=== PATIENT | male | born 1960 | race Caucasian/White ===

== ENCOUNTER → 2021-04-20 09:23 | Outpatient (BNVA) | payer MEDICARE, SELFPAY | PROVIDERS: Family Provider Specialist; PCP Nurse Practitioner Family; Referring Provider Nurse Practitioner Family; Visit Provider Anesthesiology Pain Medicine | DX: M48.062 Spinal stenosis, lumbar region with neurogenic claudication (principal); M79.604 Pain in right leg; M79.605 Pain in left leg; M46.96 Unspecified inflammatory spondylopathy, lumbar region; F17.210 Nicotine dependence, cigarettes, uncomplicated | CPT/HCPCS: 99214 ==

== ENCOUNTER → 2021-05-05 13:54 | Outpatient (BNVA) | payer MEDICARE, SELFPAY | PROVIDERS: Family Provider Specialist; PCP Nurse Practitioner Family; Visit Provider Anesthesiology Pain Medicine | DX: M54.16 Radiculopathy, lumbar region (principal); F17.210 Nicotine dependence, cigarettes, uncomplicated | CPT/HCPCS: 64483; 64484; J1100; J3490 ==

== ENCOUNTER → 2021-05-20 09:21 | Outpatient (BNVA) | payer MEDICARE, SELFPAY | PROVIDERS: Family Provider Specialist; PCP Nurse Practitioner Family; Visit Provider Anesthesiology Pain Medicine | DX: M47.816 Spondylosis without myelopathy or radiculopathy, lumbar region (principal); M51.16 Intervertebral disc disorders with radiculopathy, lumbar region; M79.604 Pain in right leg; M79.605 Pain in left leg; F17.210 Nicotine dependence, cigarettes, uncomplicated | CPT/HCPCS: 99214 ==

== ENCOUNTER → 2021-06-23 10:53 | Outpatient (BNVA) | payer MEDICARE, SELFPAY | PROVIDERS: Family Provider Specialist; PCP Nurse Practitioner Family; Referring Provider Nurse Practitioner Family; Visit Provider Orthopaedic Surgery | DX: M17.12 Unilateral primary osteoarthritis, left knee (principal); F17.210 Nicotine dependence, cigarettes, uncomplicated | CPT/HCPCS: 73560; 73565; 99204 ==

== ENCOUNTER 2022-08-03 12:14 | Outpatient (CLI) | payer MEDICARE, SELFPAY ==
--- NOTE | 2022-08-03 12:25 | XRR_ITS ---
PROCEDURE INFORMATION: Exam: XR Chest Exam date and time: 08/03/2022 12:36 PM Age: 61 years old Clinical indication: Condition or disease; Lung condition and disease; Copd; Complications not specified; Additional info: J44.9 - chronic obstructive pulmonary disease, unspecified TECHNIQUE: Imaging protocol: Radiologic exam of the chest. Views: 2 views. COMPARISON: CR XR chest 1V [id number] 03/16/2018 12:07 PM FINDINGS: Lungs: Hyperexpanded lungs consistent with COPD Pleural spaces: Unremarkable. No pleural effusion. No pneumothorax. Heart/Mediastinum: Unremarkable. No cardiomegaly. Bones/joints: Unremarkable. XR/XR chest 2V* [id number] IMPRESSION: 1. COPD 2. Otherwise No acute findings.
== END 2022-08-03 12:15 | disposition home or self-care (01) ==
PROVIDERS: PCP Registered Nurse; Visit Provider Registered Nurse
DX: J44.9 Chronic obstructive pulmonary disease, unspecified (principal); E78.5 Hyperlipidemia, unspecified; M25.50 Pain in unspecified joint
CPT/HCPCS: 71046; 80053; 80061; 85025; 85651; 86141

== ENCOUNTER 2022-08-11 07:59 | Outpatient (CLI) | payer MEDICARE, SELFPAY ==
[2022-08-11 08:18] VITALS: PULSE 58; RESP 18; O2SAT 98
[2022-08-11 08:22] VITALS: PULSE 59
== END 2022-08-11 08:00 | disposition home or self-care (01) ==
LOC: RT 08:01
PROVIDERS: PCP Registered Nurse; Visit Provider Registered Nurse
DX: J44.9 Chronic obstructive pulmonary disease, unspecified (principal)
CPT/HCPCS: 94060; 94726; 94729; J7613

== ENCOUNTER 2022-09-01 06:00 | Outpatient (RCR) | payer MEDICARE, SELFPAY | END 2022-09-26 23:59 | disposition home or self-care (01) | LOC: WPT 06:00 | PROVIDERS: Visit Provider Registered Nurse | DX: M25.562 Pain in left knee (principal) | CPT/HCPCS: 97110; 97162 ==

== ENCOUNTER → 2023-01-27 08:26 | Outpatient (BNVA) | payer MEDICARE, SELFPAY | PROVIDERS: PCP Registered Nurse; Referring Provider Registered Nurse; Visit Provider Student in an Organized Health Care Education/Training Program | DX: M17.12 Unilateral primary osteoarthritis, left knee (principal) | CPT/HCPCS: 20610; 73560; 73565; 99204; J3301 ==

== ENCOUNTER → 2023-06-22 13:20 | Outpatient (BNVA) | payer MEDICARE, SELFPAY | PROVIDERS: PCP Registered Nurse; Visit Provider Physician Assistant | DX: M17.12 Unilateral primary osteoarthritis, left knee (principal) | CPT/HCPCS: 99213 ==

== ENCOUNTER → 2023-07-18 13:57 | Outpatient (BNVA) | payer MEDICARE, SELFPAY | PROVIDERS: PCP Registered Nurse; Visit Provider Physician Assistant | DX: M17.12 Unilateral primary osteoarthritis, left knee (principal) | CPT/HCPCS: 20610; 99213; J7318 ==

== ENCOUNTER → 2023-09-06 10:52 | Outpatient (BNVA) | payer MEDICARE, SELFPAY | PROVIDERS: PCP Registered Nurse; Visit Provider Registered Nurse | DX: E78.5 Hyperlipidemia, unspecified (principal); J44.9 Chronic obstructive pulmonary disease, unspecified; Z79.1 Long term (current) use of non-steroidal anti-inflammatories (NSAID); E55.9 Vitamin D deficiency, unspecified | CPT/HCPCS: 80053; 80061; 82306; 85025 ==

== ENCOUNTER → 2024-02-26 09:53 | Outpatient (BNVA) | payer MEDICARE, SELFPAY | PROVIDERS: PCP Registered Nurse; Visit Provider Registered Nurse | DX: I10 Essential (primary) hypertension; J43.9 Emphysema, unspecified; E78.5 Hyperlipidemia, unspecified; E55.9 Vitamin D deficiency, unspecified | CPT/HCPCS: 80053; 80061; 82306; 85025 ==

== ENCOUNTER 2024-02-27 09:29 | Outpatient (CLI) | payer MEDICARE, SELFPAY ==
[2024-02-27] MEDS: iohexol 350 mg/mL 500 mL Btl (per mL) IV (09:47)
--- NOTE | 2024-02-27 10:30 | CTR_ITS ---
PROCEDURE INFORMATION: Exam: CT Chest With Contrast; Diagnostic Exam date and time: 02/27/2024 9:40 AM Age: 63 years old Clinical indication: Abnormal findings; Abnormal radiologic exam of lung or chest; Patient HX: Follow up chest xray, shortness of breath, cough x 1 month, copd; Additional info: R91.8 - other nonspecific abnormal finding of lung field TECHNIQUE: Imaging protocol: Diagnostic computed tomography of the chest with contrast. Sagittal and coronal reformatted images were also reviewed. Radiation optimization: All CT scans at this facility use at least one of these dose optimization techniques: automated exposure control; mA and/or kV adjustment per patient size (includes targeted exams where dose is matched to clinical indication); or iterative reconstruction. Contrast material: OMNI 350; Contrast volume: 100 ml; Contrast route: INTRAVENOUS (IV); COMPARISON: CR XR chest 2V* [id number] 08/03/2022 12:36 PM RADIATION DOSE METRICS: Total DLP (mGy-cm): 295.09 FINDINGS: Trachea: Tracheobronchial structures are patent. Lungs: Mild paraseptal and centrilobular emphysematous changes in the upper lobes. Scattered areas of linear scarring in the right and left upper lobes. Pleural-based cavitary lesion with thickened patel and spiculated margins in the right upper lobe measuring 6.0 x 3.8 x 4.3 cm (series 7, image 51 and series 4, image 17). Pleural spaces: Small right pleural effusion, possible malignant effusion cannot be ruled out. No pneumothorax. Heart: No cardiomegaly. No pericardial effusion. Coronary arteries: No coronary artery calcification. Esophagus: The esophagus is unremarkable. Mediastinal space: No mediastinal hematoma. No pneumomediastinum. Lymph nodes: Large conglomerate lymph node mass in the right paratracheal region/right hilum measuring 10.3 x 4.4 x 4.2 cm (series 7, image 40 and series 6, image 28). The mass surrounds but does not narrow the right upper and middle lobar bronchi and also surrounds and mildly narrows the right upper lobe pulmonary artery. The mass also invades the superior vena cava, the SVC is almost totally occluded by a combination of tumor thrombus and bland thrombus (series 7, image 41 and series 3, images 20-28). Additional enlarged mediastinal and subcarinal lymph nodes are also visualized, the largest in the subcarinal region measures 2.4 x 3.9 cm (series 3, image 31). Vasculature: Mild atherosclerotic changes in the visualized arteries. No evidence for aortic aneurysm or aortic dissection. Liver: Diffuse, mildly decreased attenuation in the visualized liver. Findings are consistent with mild fatty infiltration. Gallbladder and biliary ducts: No dilatation of the visualized bile ducts. Pancreas: The visualized pancreas is unremarkable. No pancreatic ductal dilatation. Spleen: The spleen is unremarkable. Small splenule in the left upper quadrant. Adrenal glands: The right and left adrenal glands are unremarkable. Kidneys: The visualized right and left kidneys are unremarkable. Bones/joints: Degenerative changes in the spine and shoulders. No lytic or sclerotic bony lesions. Soft tissues: No acute abnormality in the extrathoracic soft tissues. CT/CT chest w con* [id number] IMPRESSION: 1. Pleural-based cavitary lesion with thickened patel and spiculated margins in the right upper lobe measuring 6.0 x 3.8 x 4.3 cm, findings are suspicious for a cavitary neoplasm such as squamous cell carcinoma. 2. Mediastinal and right hilar lymphadenopathy suspicious for metastatic disease. These findings include a large conglomerate lymph node mass in the right paratracheal region/right hilum measuring 10.3 x 4.4 x 4.2 cm. The mass surrounds but does not narrow the right upper and middle lobar bronchi and also surrounds and mildly narrows the right upper lobe pulmonary artery. The lymph node mass also invades the superior vena cava, the SVC is almost totally occluded by a combination of tumor thrombus and bland thrombus. 3. Small right pleural effusion, possible malignant effusion cannot be ruled out. 4. Mild fatty infiltration of the visualized liver. 5. Incidental/nonacute findings are listed in the report. COMMENTS: The presence of pulmonary emphysema on CT is an independent risk factor for lung cancer. In the absence of a history or active diagnosis of lung cancer, it is recommended that this patient with emphysema be evaluated for enrollment in a low dose CT lung cancer screening program.
== END 2024-02-27 09:30 | disposition home or self-care (01) ==
PROVIDERS: PCP Registered Nurse; Visit Provider Registered Nurse
DX: R91.8 Other nonspecific abnormal finding of lung field (principal); R59.9 Enlarged lymph nodes, unspecified; R93.89 Abnormal findings on diagnostic imaging of other specified body structures; R59.1 Generalized enlarged lymph nodes; J90 Pleural effusion, not elsewhere classified; K76.0 Fatty (change of) liver, not elsewhere classified; J43.8 Other emphysema
CPT/HCPCS: 71260

== ENCOUNTER 2024-02-27 13:18 | Inpatient (IN) | payer MEDICARE, SELFPAY ==
[2024-02-27] VITALS (12 sets, daily range): BP systolic 103–179; BP diastolic 76–101; PULSE 66–105; RESP 14–25; TEMP 36.4–37; O2SAT 88–94; BMI 21.8
--- NOTE | 2024-02-27 14:30 | ED_ITS ---
HPI - Recheck/Abnormal Lab/Rx 2 General: Chief Complaint: Recheck/Abnormal Lab/Rx Stated Complaint: Cancer (doc Reff) Time Seen by Provider: 02/27/24 14:23 History of Present Illness: 63-year-old male presented to the emerge ncy room with direction of nurse practitioner he usually sees he had an abnormal chest CT today there is concerning findings suggestive of a lung CA. He has not had any fever sweats or chills he is more short of breath in the last several weeks than he has been in the past. He is has his usual baseline cough no hemoptysis. No fever sweats or chills. No muscle pain muscle spasms or twitching Related Data Home Medications Medication Instructions Recorded Confirmed ibuprofen 200 mg tablet 200 mg PO Q6H PRN Pain 04/20/21 02/27/24 fluticasone fur. 100 mcg-umeclid 1 ea inhalation DAILY 02/27/24 02/27/24 62.5 mcg-vilant 25 mcg inhalat.powder (Trelegy Ellipta) meloxicam 15 mg tablet 15 mg PO DAILY 02/27/24 02/27/24 omeprazole 40 mg capsule,delayed 40 mg PO DAILY 02/27/24 02/27/24 release Previous Rx's Medication Instructions Recorded azithromycin 250 mg tablet See Rx Instructions PO .COMPLEX #6 02/26/24 tabs cholecalciferol (vitamin D3) 1,250 1,250 mcg PO .once a week 90 days 02/26/24 mcg (50,000 unit) capsule #12 caps Allergies Allergy/AdvReac Type Severity Reaction Status Date / Time ciprofloxacin Allergy ADR-Seizure Verified 02/27/24 13:35 sulfamethizole Allergy ADR-Seizure Verified 02/27/24 13:35 Review of Systems 2 Const: Reports: change in appetite and change in weight; Denies: fever(s) or chills Card: Denies: chest pain Resp: Reports: dyspnea and productive cough (Chronic unchanged at baseline) GI: Denies: abdominal pain : Denies: dysuria, urinary frequency or urinary urgency Musc: Denies: neck pain or back pain Skin/Breast: Denies: rash PFSH ED 2 PFSH: Medical History GERD (gastroesophageal reflux disease) COPD (chronic obstructive pulmonary disease) Surgical History Hx of knee surgery Arthroscopy x2. Once in [place] and other in [place] Family History Father Cancer Social History Smoking and tobacco/nicotine status: former use of tobacco/nicotine (Quit 3 weeks ago) Alcohol intake: never Substance/Drug Use: never Adopted: No Caregiver/support person: No Lives independently: No Household members: spouse Marital status: service: No Current occupational status: retired Sexually active: Yes Do you think of yourself as: Straight/Heterosexual Current gender identity: Male Physical Exam 2 Const: GENERAL APPEARANCE: cooperative ORIENTATION/CONSCIOUSNESS: Yes awake, Yes oriented to person, Yes oriented to place and Yes oriented to time HENMT: COMMON NORMALS: normocephalic, atraumatic and hearing grossly normal bilaterally HEAD & SCALP: normocephalic and atraumatic Resp: COMMON NORMALS: normal respiratory effort, No retractions, No use of accessory muscles and clear to auscultation bilaterally AUSCULTATION: clear to auscultation bilaterally Cardio: COMMON NORMALS: regular rate, regular rhythm and No murmurs present (Cardio) RATE: regular rate RHYTHM: regular rhythm GI: COMMON NORMALS: Soft to palpation and No hepatosplenomegaly present A USCULTATION: Yes normoactive bowel sounds PALPATION: Yes Soft to palpation, No Tenderness to palpation present (GI), No Guarding due to palpation present (GI) and Yes No hepatosplenomegaly present Extremity: COMMON NORMALS: normal to inspection, capillary refill normal, no clubbing, cyanosis or edema, no calf tenderness and no pedal edema Neuro: SENSORIUM/ORIENTATION: Yes oriented to person, Yes oriented to place and Yes oriented to time Skin: COMMON NORMALS: no rashes or lesions noted GENERAL SKIN EXAM: no rashes or lesions noted Course 2 Vital Signs: Vital signs: Vital Signs Temperature 98.2 F 02/29/24 17:44 Pulse Rate 87 02/29/24 17:44 Respiratory Rate 16 02/29/24 17:44 Blood Pressure 143/82 02/29/24 17:44 Pulse Oximetry 16 L 01/02/25 17:44 Oxygen Delivery Me thod Room Air 02/29/24 15:47 Fraction of Inspir ed Oxygen 30 02/27/24 18:05 MDM - Recheck/Abnormal Lab/Rx Medical Decision Making Severe hypercalcemia. Calcitonin and zoledronic acid initiated. Discussed with hospitalist. There is a questionable occlusion of the superior vein. I discussed with radiology there is some reconstitution past that Dr. Rosales felt that it was part of the mass effect and that it would not necessarily need to be intervened on at this time it is reconstituting beyond the area of concern. Medical Records I reviewed the patient's medical records. Lab Data 02/29/24 05:08 02/29/24 05:08 Radiology Impressions Abdomen/Pelvis CT 02/27/24 16:38 IMPRESSION: 1. Multiple peritoneal nodules, consistent with metastatic disease. 2. No primary malignancy identified in the abdomen or pelvis. 3. Right pleural effusion. Venous Duplex 02/28/24 08:18 IMPRESSION: No evidence of deep vein thrombosis. Laboratory Results WBC 14.33 10^3/uL (3.29-11.43) H 02/27/24 14:55 RBC 3.79 10^6/uL (3.85-5.65) L 02/27/24 14:55 Hgb 9.80 g/dL (11.27-16.99) L 02/27/24 14:55 Hct 30.8 % (37-53) L 02/27/24 14:55 MCV 81.3 fl (82-101) L 02/27/24 14:55 MCH 25.9 pg (27-33) L 02/27/24 14:55 MCHC 31.8 g/dL (30-55) 02/27/24 14:55 RDW 14.6 % (12.1-15.1) 02/27/24 14:55 Plt Count 286 10^3/cmm (157-399) 02/27/24 14:55 MPV 9.0 fL (7.4-10.4) 02/27/24 14:55 Neut % (Auto) 75.1 % 02/27/24 14:55 Lymph % (Auto) 11.5 % 02/27/24 14:55 [place] % (Auto) 7.6 % 02/27/24 14:55 Eos % (Auto) 0.4 % 02/27/24 14:55 Baso % (Auto) 0.7 % 02/27/24 14:55 Neut # (Auto) 10.75 10^3/uL (1.8-7.7) H 02/27/24 14:55 Lymph # (Auto) 1.7 10^3/uL (0.8-4.8) 02/27/24 14:55 [place] # (Auto) 1.1 10^3/uL (0.2-0.9) H 02/27/24 14:55 Eos # (Auto) 0.1 10^3/uL (0.0-0.8) 02/27/24 14:55 Baso # (Auto) 0.1 10^3/uL (0.0-0.1) 02/27/24 14:55 Nucleated RBC % (auto) 0 % 02/27/24 14:55 Nucleated RBCs # 0.0 /100WBC 02/27/24 14:55 Peripher Smr Path Cons Sent for review 02/27/24 14:55 Sodium 133 mmol/L (136-145) L 02/27/24 14:55 Potassium 4.0 mmol/L (3.5-5.1) 02/27/24 14:55 Chloride 96 mmol/L (98-107) L 02/27/24 14:55 Carbon Dioxide 24 mmol/L (22-29) 02/27/24 14:55 Anion Gap 17.0 (5-19) 02/27/24 14:55 BUN 20 mg/dL (8-23) 02/27/24 14:55 Creatinine 1.1 mg/dL (0.7-1.2) 02/27/24 14:55 GFR Calculation 68.1 mL/min (90-130) L 02/27/24 14:55 Glucose 103 mg/dL (65-115) 02/27/24 14:55 Estimat Average Glucose 128 02/27/24 14:55 Hemoglobin A1c 6.1 % (4.0-6.0) H 02/27/24 14:55 Calculated Osmolality 279 mOsm/kg (285-295) L 02/27/24 14:55 Lactic Acid 2.4 mmol/L (0.5-2.2) H 02/27/24 14:55 Uric Acid 6.8 mg/dL (3.4-7.0) 02/27/24 14:55 Calcium 14.3 mg/dL (8.5-10.5) H* 02/27/24 14:55 Ionized Calcium Mitzy 1.9 mmol/L (1.1-1.4) H* 02/27/24 14:55 Magnesium 1.3 mg/dL (1.7-2.3) L 02/27/24 14:55 Total Bilirubin 0.3 mg/dL (0.15-1.2) 02/27/24 14:55 AST 30 U/L (0-40) 02/27/24 14:55 ALT 28 U/L (0-41) 02/27/24 14:55 Alkaline Phosphatase 176 U/L (40-130) H 02/27/24 14:55 Lactate Dehydrogenase 815 U/L (135-225) H 02/27/24 14:55 Total Protein 6.8 g/dL (6.6-8.7) 02/27/24 14:55 Albumin 3.5 g/dL (3.5-5.2) 02/27/24 14:55 Globulin 3.3 g/dL (1.3-4.6) 02/27/24 14:55 Triglycerides 358 mg/dL (0-150) H 02/27/24 14:55 Cholesterol 200 mg/dL (0-200) 02/27/24 14:55 LDL Cholesterol, Calc 100 mg/dL (50-129) 02/27/24 14:55 HDL Cholesterol 28 mg/dL (60-100) L 02/27/24 14:55 LDL/HDL Ratio 3.57 RATIO (0.00-3.22) H 02/27/24 14:55 Cholesterol/HDL Ratio 7.14 mg/dL (1.0-5.00) H 02/27/24 14:55 25-OH Vitamin D Total 70 pg/mL (18-72) 02/27/24 14:55 1,25 Dihydroxy Vit D2 <8 pg/mL 02/27/24 14:55 1,25 Dihydroxy Vit D3 70 pg/mL 02/27/24 14:55 TSH 1.37 uIU/mL (0.27-4.20) 02/27/24 14:55 PTH Intact 3.4 pg/mL (15-65) L 02/27/24 14:55 Calcium (PTH Intact) 14.7 mg/dL (8.5-10.5) H* 02/27/24 14:55 All radiology interpretation(s) finalized by discharge Discharge Plan Discharge Patient Disposition: Admitted As Inpatient Admit Provider: Tigre Melissa Clinical Impression: Hypercalcemia of malignancy, Superior vena caval occlusion, Mass of right lung, Cigarette smoker motivated to quit Condition: Stable Coding Level of Care Code ED Prototype Technician for Sunil Gauthier
--- NOTE | 2024-02-27 14:44 | ECG_ITS ---
[facility] Test Date: 2024-02-27 Pat Name: Erica Jo Department: Room: Gender: Male Geochemist: : 1960 Requested By: Ravi Bailey Order Number: [id number] Reji MD: Yue Moore M.D. Measurements Intervals [place] Rate: 68 P: 53 [place]: 157 QRS: 30 QRSD: 108 T: 37 QT: 369 QTc: 395 Interpretive Statements SINUS RHYTHM No previous ECG available for comparison Electronically Signed On 02-27-2024 17:46:39 CLIMATE CHANGE RISK ASSESSOR by Yue Moore M.D. [id number]
[2024-02-27 15:03] LABS: Ionized Calcium 1.9 mmol/L (1.1-1.4)
[2024-02-27 15:16] LABS: Basophils # 0.1 10^3/uL (0.0-0.1); Basophils % 0.7 %; Eosinophils # 0.1 10^3/uL (0.0-0.8); Eosinophils % 0.4 %; Hematocrit 30.8 % (37-53); Lymphocytes # 1.7 10^3/uL (0.8-4.8); Lymphocytes % 11.5 %; Mean Corpuscular HGB Conc 31.8 g/dL (30-55); Mean Corpuscular Hemoglobin 25.9 pg (27-33); Mean Corpuscular Volume 81.3 fl (82-101); Monocytes # 1.1 10^3/uL (0.2-0.9); Monocytes % 7.6 %; Neutrophils # 10.75 10^3/uL (1.8-7.7); Neutrophils % 75.1 %; Nucleated Red Blood Cells % 0 %; Platelet Count 286 10^3/cmm (157-399); Red Blood Count 3.79 10^6/uL (3.85-5.65); Red Cell Distribution Width 14.6 % (12.1-15.1); White Blood Count 14.33 10^3/uL (3.29-11.43)
[2024-02-27] MEDS: sodium chloride 0.9% 1,000 ML 999 ML IV ×2 (15:18→17:32)
[2024-02-27 15:33] LABS: Alanine Aminotransferase 28 U/L (0-41); Albumin Level 3.5 g/dL (3.5-5.2); Alkaline Phosphatase 176 U/L (40-130); Aspartate Amino Transferase 30 U/L (0-40); Blood Urea Nitrogen 20 mg/dL (8-23); Carbon Dioxide 24 mmol/L (22-29); Chloride 96 mmol/L (98-107); Creatinine Clr Calc Pharmacy 69.0979; Globulin 3.3 g/dL (1.3-4.6); Glomerular Filtration Rate 68.1 mL/min (90-130); Glucose 103 mg/dL (65-115); Magnesium 1.3 mg/dL (1.7-2.3); Osmolality Calculated 279 mOsm/kg (285-295); Sodium 133 mmol/L (136-145); Total Bilirubin 0.3 mg/dL (0.15-1.2); Total Protein 6.8 g/dL (6.6-8.7)
[2024-02-27 15:36] LABS: Calcium 14.3 mg/dL (8.5-10.5)
[2024-02-27] MEDS: calcitonin,salmon 200 unit/mL SDV 2mL 100 UNIT SUBCUT (15:41)
[2024-02-27] MEDS: zoledronic acid (Zometa) 4 MG/100 ML PIGGYBACK 400 MG IV (15:45)
[2024-02-27] MEDS: calcitonin,salmon 200 unit/mL SDV 2mL 170 UNIT SUBCUT (16:38)
--- NOTE | 2024-02-27 16:38 | CTR_ITS ---
PROCEDURE INFORMATION: Exam: CT Abdomen And Pelvis Without Contrast Exam date and time: 02/27/2024 5:06 PM Age: 63 years old Clinical indication: Abdominal pain; Generalized; Additional info: Abdominal pain, flank pain TECHNIQUE: Imaging protocol: Computed tomography of the abdomen and pelvis without contrast. Radiation optimization: All CT scans at this facility use at least one of these dose optimization techniques: automated exposure control; mA and/or kV adjustment per patient size (includes targeted exams where dose is matched to clinical indication); or iterative reconstruction. COMPARISON: CT chest w con* [id number] 02/27/2024 9:40 AM RADIATION DOSE METRICS: Total DLP (mGy-cm): 402.27 FINDINGS: Lungs: Mild atelectasis in the lung bases. Pleural spaces: Small right pleural effusion. Diaphragm: Hiatal hernia. Liver: Normal. No mass. Gallbladder and biliary ducts: Probable sludge and tiny stones in the gallbladder. No visible wall thickening. The bile ducts normal. Pancreas: Normal. No ductal dilation. Spleen: Normal. No splenomegaly. Adrenal glands: Normal. No mass. Kidneys and ureters: Faint excreted contrast in the bilateral renal collecting system. No hydronephrosis. Inhomogeneous residual patchy enhancement both kidneys. No discrete mass. Stomach and bowel: Mild diverticulosis in the colon. No diverticulitis. The stomach and small bowel are unremarkable. No wall thickening or obstruction. Appendix: The appendix is visualized and is normal. Intraperitoneal space: Multiple peritoneal nodules adjacent to the right liver lobe measuring up to 1.3 cm, adjacent to the spleen measuring up to 1.7 cm, anterior mesentery measuring up to 1.9 cm, left paracolic gutter measuring 1.6 cm, and right lower quadrant mesentery measuring 1.0 cm. Vasculature: Mild arterial calcified plaque. No aneurysm. Lymph nodes: Unremarkable. No enlarged lymph nodes. Urinary bladder: Contrast distended urinary bladder. No wall thickening. Reproductive: The prostate measures 5.0 cm with coarse calcifications. Bones/joints: Degenerative changes in the spine. No acute fracture. No aggressive bone lesion. Soft tissues: Unremarkable. CT/CT abdomen pelvis wo con [id number] IMPRESSION: 1. Multiple peritoneal nodules, consistent with metastatic disease. 2. No primary malignancy identified in the abdomen or pelvis. 3. Right pleural effusion.
--- NOTE | 2024-02-27 16:47 | P.HP_ITS ---
Providers/Chief Complaint 2 Primary Care Provider: JESSICA Pretty Chief Complaint: Cancer (doc Reff) History of Present Illness Erica Jo is a 63 year old male with a past medical history smoking, history of COPD, who presents to [facility] due to fatigue, malaise, weight loss poor appetite for the last few months. He tells me that he was told to come to the emergency room by the nurse of his primary care provider after his CT of his chest results. He tells me that for the last few months he has been having weakness,, poor appetite, weight loss, he is a current smoker, denies any nausea, no vomiting, no chest pain, no shortness of breath, no trouble breathing, no headache, blurry vision no facial fullness,. Denies any bloody or black stools but does report acute on chronic low back pain. He tells me that they had done a chest x-ray as outpatient without followed up with a chest CT and he was told that he has 2 areas that are concerning for lung malignancy so he was told to come to [facility] for evaluation. He tells me that they were also concerned with his calcium levels. Denies any any flank pain, no dysuria, Review of Systems 2 Card: Denies: chest pain Resp: Denies: dyspnea GI: Denies: abdominal pain Musc: Denies: neck pain or back pain Medications/Allergies Home Medications Medication Instructions Recorded Confirmed Last Taken Type ibuprofen 200 mg tablet 200 mg PO Q6H PRN Pain 04/20/21 02/27/24 Unknown History azithromycin 250 mg tablet See Rx Instructions PO .COMPLEX #6 02/26/24 02/27/24 02/27/24 Rx tabs cholecalciferol (vitamin D3) 1,250 1,250 mcg PO .once a week 90 days 02/26/24 02/27/24 02/27/24 Rx mcg (50,000 unit) capsule #12 caps fluticasone fur. 100 mcg-umeclid 1 ea inhalation DAILY 02/27/24 02/27/24 02/27/24 History 62.5 mcg-vilant 25 mcg inhalat.powder (Trelegy Ellipta) meloxicam 15 mg tablet 15 mg PO DAILY 02/27/24 02/27/24 Unknown History omeprazole 40 mg capsule,delayed 40 mg PO DAILY 02/27/24 02/27/24 02/27/24 History release Allergies Allergy/AdvReac Type Severity Reaction Status Date / Time ciprofloxacin Allergy ADR-Seizure Verified 02/27/24 13:35 sulfamethizole Allergy ADR-Seizure Verified 02/27/24 13:35 PFSH Acute 2 PFSH: Medical History GERD (gastroesophageal reflux disease) COPD (chronic obstructive pulmonary disease) Surgical History Hx of knee surgery Arthroscopy x2. Once in [place] and other in [place] Family History Father Cancer Social History Smoking and tobacco/nicotine status: former use of tobacco/nicotine (Quit 3 weeks ago) Alcohol intake: never Substance/Drug Use: never Adopted: No Caregiver/support person: No Lives independently: No Household members: spouse Marital status: service: No Current occupational status: retired Sexually active: Yes Do you think of yourself as: Straight/Heterosexual Current gender identity: Male Vitals/I&O/Wt Last Vital Signs Temp 97.5 F L 02/27/24 13:31 Pulse 74 02/27/24 16:40 Resp 16 02/27/24 16:40 BP 167/99 02/27/24 16:40 Pulse Ox 93 02/27/24 16:40 O2 Del Method Room Air 02/27/24 16:40 Weight last 48 hrs Weight 67.132 kg Physical Exam 2 Const: COMMON NORMALS: no acute distress and patient oriented x3 Eye: COMMON NORMALS: Equal, round and reactive pupils present and EOMs intact bilaterally Resp: COMMON NORMALS: normal respiratory effort, No retractions, No use of accessory muscles and clear to auscultation bilaterally AUSCULTATION: clear to auscultation bilaterally Cardio: COMMON NORMALS: no JVD, regular rate, regular rhythm, S1 normal heart sound present and S2 normal heart sound present RATE: regular rate RHYTHM: regular rhythm HEART SOUNDS: S1 normal heart sound present and S2 normal heart sound present GI: COMMON NORMALS: Normal to inspection, nondistended, normoactive bowel sounds present, Soft to palpation and non-tender Extremity: COMMON NORMALS: no pedal edema Neuro: COMMON NORMALS: patient oriented x3, CN's II-XII intact bilaterally and moves all extremities Psych: COMMON NORMALS: mental status grossly normal Data 02/27/24 14:55 02/27/24 14:55 A&P Assessment and plan (1) Mass of right lung: (2) COPD (chronic obstructive pulmonary disease): Qualifiers: COPD type: emphysema Emphysema type: unspecified Qualified Code(s): J 43.9 - Emphysema, unspecified (3) Superior vena caval occlusion: (4) Hypercalcemia: (5) Hypercalcemia of malignancy: Plan Lung mass CT/CT chest w con* [id number] IMPRESSION: 1. Pleural-based cavitary lesion with thickened patel and spiculated margins in the right upper lobe measuring 6.0 x 3.8 x 4.3 cm, findings are suspicious for a cavitary neoplasm such as squamous cell carcinoma. 2. Mediastinal and right hilar lymphadenopathy suspicious for metastatic disease. These findings include a large conglomerate lymph node mass in the right paratracheal region/right hilum measuring 10.3 x 4.4 x 4.2 cm. The mass surrounds but does not narrow the right upper and middle lobar bronchi and also surrounds and mildly narrows the right upper lobe pulmonary artery. The lymph node mass also invades the superior vena cava, the SVC is almost totally occluded by a combination of tumor thrombus and bland thrombus. 3. Small right pleural effusion, possible malignant effusion cannot be ruled out. 4. Mild fatty infiltration of the visualized liver. 5. Incidental/nonacute findings are listed in the report. -With evidence of SVC is almost totally occluded by combination of tumor thrombus and bland thrombus Plan ? Will speak to oncology ? Will need to be followed up with pulmonary as outpatient -For his SVC tumor thrombus, no chest pain, no neck swelling, no respiratory symptoms, no neurologic symptoms, no issues with airway Hypercalcemia of malignancy ? Status post fluid, bisphosphonate, zoledronic acid in the emergency room ? Check calcium every 6 hours ? Telemetry monitoring ? 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
[2024-02-27 17:10] LABS: LAB Peripheral Smear Sent for Review; Lactic Sepsis W/Reflex 2.4 mmol/L (0.5-2.2)
[2024-02-27 17:20] LABS: Chol HDL Ratio 7.14 mg/dL (1.0-5.00); Cholesterol 200 mg/dL (0-200); HDL Cholesterol 28 mg/dL (60-100); LDL Cholesterol Calculated 100 mg/dL (50-129); LDL HDL Ratio 3.57 RATIO (0.00-3.22); Lactate Dehydrogenase 815 U/L (135-225); Thyroid Stimulating Hormone 1.37 uIU/mL (0.27-4.20); Triglycerides 358 mg/dL (0-150); Uric Acid 6.8 mg/dL (3.4-7.0)
[2024-02-27 17:25] LABS: Bilirubin Urine Negative (Negative); Blood Urine Negative (Negative); Glucose Urine UA Negative (Normal); Ketones Urine Negative (Negative); Leukocyte Esterase Urine Negative (Negative); Nitrate Urine Negative (Negative); Protein Urine Negative (Negative); Specific Gravity, Urine 1.025 (1.005-1.030); Urine Appearance Clear (CLEAR); Urine Color Yellow (Yellow)
[2024-02-27 17:27] LABS: Add Urine Microscopic? YES; Bacteria Urine None Seen /hpf; Hyaline Casts Urine 0.81 /lpf; RBC Urine 0-2 /hpf (0-2); Squamous Epithelial Cell Urine 0-5 /hpf (0-5); WBC Urine 0-5 /hpf (0-5)
[2024-02-27] MEDS: enoxaparin 40 mg/0.4 mL Syringe SUBCUT (17:32)
[2024-02-27] MEDS: pantoprazole 40 mg SDV IVP (17:32)
[2024-02-27 17:39] LABS: Parathyroid Hormone 3.4 pg/mL (15-65)
--- NOTE | 2024-02-27 17:48 | PC.NURSE ---
PT BP WAS ELEVATED BEFORE HE WAS TAKEN TO [facility]. NURSE CALLED ACCEPTING , INSTRUCTED NURSE TO GIVE A NEW MEDICATION ORDER, BUT VERBALIZED PT WAS OKAY TO GO TO [facility] AFTER MED WAS GIVEN.
[2024-02-27 17:50] LABS: Calcium 14.7 mg/dL (8.5-10.5)
--- NOTE | 2024-02-27 17:50 | PC.NURSE ---
ATTEMPTED TO NOTIFY FLOOR OF NEW ORDER AND MED GIVEN, NO NURSE ANSWERED, PT WAS SENT TO FLOOR. PROVIDER AWARE.
[2024-02-27] MEDS: amlodipine 5 mg Tablet PO (17:53)
[2024-02-27 18:25] LABS: Reflex Lactate Order REFLEX LACTIC ORDERD
[2024-02-27] MEDS: sodium chloride 0.9% 1,000 ML 75 ML IV (18:33)
[2024-02-27 19:20] LABS: Lactic Acid level (Lactate) 2.4 mmol/L (0.5-2.2)
[2024-02-27 20:52] LABS: Estmated Average Glucose 128; Hemoglobin A1C 6.1 % (4.0-6.0)
[2024-02-27] MEDS: morphine 4 mg/mL SDV 1 mL 2 MG IVP (21:11)
[2024-02-27] MEDS: ipratropium-albuterol 3 mL Neb INHALATION (21:39)
[2024-02-27 22:37] LABS: Calcium 12.3 mg/dL (8.5-10.5)
[2024-02-28] VITALS (23 sets, daily range): BP systolic 142–192; BP diastolic 57–96; PULSE 65–104; RESP 14–20; TEMP 36.7–37; O2SAT 90–95
[2024-02-28] MEDS: ipratropium-albuterol 3 mL Neb INHALATION ×4 (01:52→21:07)
[2024-02-28] MEDS: morphine 4 mg/mL SDV 1 mL 2 MG IVP ×2 (03:29→13:11)
[2024-02-28] MEDS: ondansetron 2 mg/ML SDV 2 mL 4 MG IVP ×2 (03:29→15:49)
[2024-02-28 04:16] LABS: Ionized Calcium 1.5 mmol/L (1.1-1.4)
[2024-02-28 04:51] LABS: Basophils # 0.1 10^3/uL (0.0-0.1); Basophils % 0.8 %; Eosinophils % 0.1 %; Hematocrit 30.9 % (37-53); Lymphocytes # 0.7 10^3/uL (0.8-4.8); Lymphocytes % 4.8 %; Mean Corpuscular HGB Conc 31.4 g/dL (30-55); Mean Corpuscular Hemoglobin 25.5 pg (27-33); Mean Corpuscular Volume 81.3 fl (82-101); Mean Platelet Volume 9.3 fL (7.4-10.4); Monocytes # 0.7 10^3/uL (0.2-0.9); Monocytes % 4.8 %; Neutrophils # 11.55 10^3/uL (1.8-7.7); Neutrophils % 84.9 %; Nucleated Red Blood Cells % 0 %; Platelet Count 269 10^3/cmm (157-399); Red Cell Distribution Width 14.8 % (12.1-15.1); White Blood Count 13.61 10^3/uL (3.29-11.43)
[2024-02-28 05:20] LABS: Alanine Aminotransferase 28 U/L (0-41); Albumin Level 3.2 g/dL (3.5-5.2); Alkaline Phosphatase 168 U/L (40-130); Anion Gap 20.2 (5-19); Aspartate Amino Transferase 31 U/L (0-40); Blood Urea Nitrogen 18 mg/dL (8-23); Calcium 11.8 mg/dL (8.5-10.5); Carbon Dioxide 21 mmol/L (22-29); Chloride 96 mmol/L (98-107); Globulin 3.4 g/dL (1.3-4.6); Glomerular Filtration Rate 85.8 mL/min (90-130); Glucose 124 mg/dL (65-115); Magnesium 1.1 mg/dL (1.7-2.3); Osmolality Calculated 279 mOsm/kg (285-295); Phosphorus 2.3 mg/dL (2.5-4.5); Potassium 4.2 mmol/L (3.5-5.1); Sodium 133 mmol/L (136-145); Total Bilirubin 0.3 mg/dL (0.15-1.2); Total Protein 6.6 g/dL (6.6-8.7)
[2024-02-28] MEDS: sodium chloride 0.9% 1,000 ML 75 ML IV ×2 (06:24→18:16)
--- NOTE | 2024-02-28 08:18 | USR_ITS ---
PROCEDURE INFORMATION: Exam: US Duplex Right Lower Extremity Veins, Limited Exam date and time: 02/28/2024 8:37 AM Age: 63 years old Clinical indication: Condition or disease; Other: Svc thrombus/mass seen on chest CT TECHNIQUE: Imaging protocol: Real-time duplex ultrasound of the right extremity with 2-D morales scale, color Doppler flow and spectral waveform analysis including responses to compression and other maneuvers (when performed) with image documentation. Limited exam was focused on the right lower extremity veins. COMPARISON: CT abdomen pelvis wo con [id number] 02/27/2024 5:06 PM FINDINGS: Right deep veins: Unremarkable. The common femoral, femoral, proximal profunda femoral and popliteal veins are patent without thrombus. Normal Doppler waveforms. Normal compressibility and/or augmentation response. Superficial veins: Greater saphenous vein at the saphenofemoral junction is patent without thrombus. Soft tissues: Unremarkable. US/[place] [id number] IMPRESSION: No evidence of deep vein thrombosis.
--- NOTE | 2024-02-28 08:46 | PC.CHAP ---
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 visit [] Patient/Family/Request visit [] Outpatient visit [] Follow-up visit [] Physician referral [] Code/Alert [x] Routine visit [] Staff referral [] Actively dying [] Patient sleeping [] Family support [] [] Out of room [] Palliative care [] [] Receiving care in room [] Pre-surgical visit [] Trauma [] Long length of stay [] ICU visit [] Other: Relational/Emotional Strength [x] Patient feels connected with others/family/visitors/staff [] Distress [] Loneliness/isolation [] Abandonment Spirituality of Patient [x] Person of Karissa [] Attends Jainism of their Karissa [x] Believes in Prayer [] Reads Bible or Uatsdin materials [] There are Spiritual issues to be addressed Optical Technician Interventions [x] Prayer [x] Active listening [] Non-anxious presence [x] Spiritual/emotional support [] Crisis/trauma care [] Spiritual counseling [] Bereavement support [] Provided bereavement packet [] Provided Bible/devotional materials [] Provided toy/stuffed animal, coloring book to patient or family member [] Provided Communion [] Anointing/[place] [] Salvation [x Completed spiritual assessment [] Other: Impact on Illness or Injury [] Angry [] Fearful [] Anxious [] Often cries [] Exhaustion [] Unable to work [] Unable to attend mu-ism [] Unable to walk/stand [] Unable to read [] Unable to drive [] Unable to eat/drink [] Unable to sleep [] Unable to be with family [] Patient intubated [] Other: Summary Time spent with patient 5 min
[2024-02-28] MEDS: amlodipine 10 mg Tablet PO (08:57)
[2024-02-28] MEDS: magnesium lactate 84 mg Tablet PO ×2 (08:57→18:09)
--- NOTE | 2024-02-28 10:04 | PC.NURSE ---
Notified Dr. Melissa patient was choking this am on water taking medications. Dr. Melissa ordered Dysphasia diet with mild thickening. Ordered Speech eval on patient as well.
--- NOTE | 2024-02-28 10:08 | PC.NURSE ---
Notified Dr. Melissa patient feeling nauseated. Zofran Q8H changing to Q4H per Dr. Melissa.
[2024-02-28 10:47] LABS: Calcium 11.3 mg/dL (8.5-10.5)
--- NOTE | 2024-02-28 14:33 | P.PN_ITS ---
Subjective 2 Subjective: patient was seen this morning complaining of pain, feeling nausea, no vommiting, no headache, no blurry vision Vitals/I&O/Wt Last Vital Signs Temp 98.3 F 02/28/24 11:46 Pulse 95 02/28/24 13:16 Resp 17 02/28/24 13:11 BP 162/83 02/28/24 11:46 Pulse Ox 90 02/28/24 13:11 O2 Del Method Room Air 02/28/24 13:06 FiO2 30 02/27/24 18:05 02/27/24 02/28/24 02/28/24 22:59 06:59 14:59 Intake Total 2099 1488.75 / 3588.75 Output Total 600 / 600 Balance 2099 888.75 / 2988.75 Weight last 48 hrs Weight 72.303 kg Weight 67.132 kg Weight 67.132 kg Physical Exam 2 Const: COMMON NORMALS: no acute distress and patient oriented x3 Resp: COMMON NORMALS: normal respiratory effort, No retractions, No use of accessory muscles and clear to auscultation bilaterally AUSCULTATION: clear to auscultation bilaterally Cardio: COMMON NORMALS: regular rate, regular rhythm, S1 normal heart sound present and S2 normal heart sound present RATE: regular rate RHYTHM: r egular rhythm HEART SOUNDS: S1 normal heart sound present and S2 normal heart sound present GI: COMMON NORMALS: Normal to inspection, nondistended, normoactive bowel sounds present and non-tender Extremity: COMMON NORMALS: no pedal edema Neuro: COMMON NORMALS: patient oriented x3 Psych: COMMON NORMALS: mental status grossly normal Data 02/28/24 04:08 02/28/24 04:08 A&P Assessment and plan (1) Mass of right lung: (2) COPD (chronic obstructive pulmonary disease): Qualifiers: COPD type: emphysema Emphysema type: unspecified Qualified Code(s): J 43.9 - Emphysema, unspecified (3) Superior vena caval occlusion: (4) Hypercalcemia: (5) Hypercalcemia of malignancy: Plan Lung mass CT/CT chest w con* [id number] IMPRESSION: 1. Pleural-based cavitary lesion with thickened patel and spiculated margins in the right upper lobe measuring 6.0 x 3.8 x 4.3 cm, findings are suspicious for a cavitary neoplasm such as squamous cell carcinoma. 2. Mediastinal and right hilar lymphadenopathy suspicious for metastatic disease. These findings include a large conglomerate lymph node mass in the right paratracheal region/right hilum measuring 10.3 x 4.4 x 4.2 cm. The mass surrounds but does not narrow the right upper and middle lobar bronchi and also surrounds and mildly narrows the right upper lobe pulmonary artery. The lymph node mass also invades the superior vena cava, the SVC is almost totally occluded by a combination of tumor thrombus and bland thrombus. 3. Small right pleural effusion, possible malignant effusion cannot be ruled out. 4. Mild fatty infiltration of the visualized liver. 5. Incidental/nonacute findings are listed in the report. CT/CT abdomen pelvis wo con [id number] IMPRESSION: 1. Multiple peritoneal nodules, consistent with metastatic disease. 2. No primary malignancy identified in the abdomen or pelvis. 3. Right pleural effusion. -With evidence of SVC is almost totally occluded by combination of tumor thrombus and bland thrombus Plan ? Will speak to oncology ? Will need to be followed up with pulmonary as outpatient -For his SVC tumor thrombus, no chest pain, no neck swelling, no respiratory symptoms, no neurologic symptoms, no issues with airway -venous ultrasound ordered Hypercalcemia of malignancy, 11.3 ? Status post fluid, bisphosphonate, zoledronic acid in the emergency room -vinicius start prednisone 40mg daily ? Check calcium every 6 hours ? Telemetry monitoring ? 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
[2024-02-28] MEDS: predniSONE 20 mg Tablet 40 MG PO (15:47)
[2024-02-28] MEDS: calcitonin,salmon 200 unit/mL SDV 2mL 100 UNIT SUBCUT (15:48)
[2024-02-28] MEDS: pantoprazole 40 mg SDV IVP (18:09)
[2024-02-28] MEDS: enoxaparin 40 mg/0.4 mL Syringe SUBCUT (18:09)
[2024-02-28] MEDS: piperacillin-tazobactam 3.375 GM in sodium chloride 0.9% (plus) 50 ML IV (18:09)
[2024-02-28 19:21] LABS: Ionized Calcium 1.4 mmol/L (1.1-1.4)
[2024-02-28] MEDS: HYDROmorphone 1 mg/mL INJ 1 mL IVP ×2 (19:27→23:29)
[2024-02-29] VITALS (19 sets, daily range): BP systolic 142–157; BP diastolic 80–91; PULSE 80–93; RESP 16–18; TEMP 36.6–37.1; O2SAT 16–95
[2024-02-29 00:26] LABS: Ionized Calcium 1.4 mmol/L (1.1-1.4)
[2024-02-29] MEDS: ipratropium-albuterol 3 mL Neb INHALATION ×3 (03:09→13:58)
[2024-02-29] MEDS: HYDROmorphone 1 mg/mL INJ 1 mL IVP ×3 (04:02→13:34)
[2024-02-29] MEDS: piperacillin-tazobactam 3.375 GM in sodium chloride 0.9% (plus) 50 ML IV ×2 (04:03→09:48)
[2024-02-29 05:21] LABS: Ionized Calcium 1.4 mmol/L (1.1-1.4)
[2024-02-29 05:26] LABS: Basophils # 0.1 10^3/uL (0.0-0.1); Basophils % 0.5 %; Hematocrit 30.3 % (37-53); Lymphocytes % 6.6 %; Mean Corpuscular Hemoglobin 25.8 pg (27-33); Mean Corpuscular Volume 80.6 fl (82-101); Mean Platelet Volume 9.1 fL (7.4-10.4); Monocytes # 0.8 10^3/uL (0.2-0.9); Monocytes % 5.3 %; Neutrophils # 11.93 10^3/uL (1.8-7.7); Neutrophils % 81.9 %; Nucleated Red Blood Cells % 0 %; Platelet Count 297 10^3/cmm (157-399); Red Blood Count 3.76 10^6/uL (3.85-5.65); Red Cell Distribution Width 14.7 % (12.1-15.1); White Blood Count 14.58 10^3/uL (3.29-11.43)
[2024-02-29 05:40] LABS: Alanine Aminotransferase 25 U/L (0-41); Albumin Level 3.2 g/dL (3.5-5.2); Alkaline Phosphatase 167 U/L (40-130); Anion Gap 15.4 (5-19); Aspartate Amino Transferase 29 U/L (0-40); Blood Urea Nitrogen 16 mg/dL (8-23); Calcium 10.8 mg/dL (8.5-10.5); Carbon Dioxide 23 mmol/L (22-29); Chloride 101 mmol/L (98-107); Creatinine Clr Calc Pharmacy 86.9746; Globulin 3.6 g/dL (1.3-4.6); Glomerular Filtration Rate 85.8 mL/min (90-130); Glucose 127 mg/dL (65-115); Magnesium 1.4 mg/dL (1.7-2.3); Osmolality Calculated 283 mOsm/kg (285-295); Phosphorus 2.7 mg/dL (2.5-4.5); Potassium 4.4 mmol/L (3.5-5.1); Sodium 135 mmol/L (136-145); Total Bilirubin 0.2 mg/dL (0.15-1.2); Total Protein 6.8 g/dL (6.6-8.7)
[2024-02-29] MEDS: sodium chloride 0.9% 1,000 ML 75 ML IV (08:31)
[2024-02-29] MEDS: predniSONE 20 mg Tablet 40 MG PO (08:32)
[2024-02-29] MEDS: amlodipine 10 mg Tablet PO (08:32)
[2024-02-29] MEDS: magnesium lactate 84 mg Tablet PO (08:34)
[2024-02-29 12:46] LABS: Ionized Calcium 1.4 mmol/L (1.1-1.4)
--- NOTE | 2024-02-29 14:33 | P.PN_ITS ---
Subjective 2 Subjective: - Patient was seen this morning -Does complain of diffuse musculoskeleta l pain -No neck pain, no neck stiffness, no hea dache, no blurry vision -We discussed his improving his serum ca lcium -He continues to have intractable pain, will transition from morphine to IV Dilaudid ? He is concerned about going home, given his large lung mass, extensive lymphadenopathy, SVC compression, tumor thrombus, bland thrombus, ? Discussed case with our oncology service, Dr. Saab, recommended transfer to tertiary level center for more rapid evaluation, biopsy as it might take some time before he can see pulmonary and oncology ? Discussed considering transfer to tertiary level center, for more rapid evaluation, and biopsy, ? S spoke to [facility], spoke to their team, they recommended transfer for IR guided biopsy and evaluation Vitals/I&O/Wt Last Vital Signs Temp 98.2 F 02/29/24 11:12 Pulse 87 02/29/24 14:00 Resp 18 02/29/24 14:00 BP 143/82 02/29/24 11:12 Pulse Ox 92 02/29/24 14:00 O2 Del Method Room Air 02/29/24 14:00 FiO2 30 02/27/24 18:05 02/28/24 02/29/24 02/29/24 22:59 06:59 14:59 Intake Total 940 / 940 1170 / 1170 Balance 940 / 940 1170 / 1170 Weight last 48 hrs Weight 72.529 kg Weight 72.303 kg Weight 67.132 kg Physical Exam 2 Const: COMMON NORMALS: no acute distress and patient oriented x3 Resp: COMMON NORMALS: normal respiratory effort, No retractions, No use of accessory muscles and clear to auscultation bilaterally AUSCULTATION: clear to auscultation bilaterally Cardio: COMMON NORMALS: regular rate, regular rhythm, S1 normal heart sound present and S2 normal heart sound present RATE: regular rate RHYTHM: r egular rhythm HEART SOUNDS: S1 normal heart sound present and S2 normal heart sound present GI: COMMON NORMALS: Normal to inspection, nondistended, normoactive bowel sounds present and non-tender Extremity: COMMON NORMALS: no pedal edema Neuro: COMMON NORMALS: patient oriented x3 Psych: COMMON NORMALS: mental status grossly normal Data 02/29/24 05:08 02/29/24 05:08 A&P Assessment and plan (1) Mass of right lung: (2) COPD (chronic obstructive pulmonary disease): Qualifiers: COPD type: emphysema Emphysema type: unspecified Qualified Code(s): J 43.9 - Emphysema, unspecified (3) Superior vena caval occlusion: (4) Hypercalcemia: (5) Hypercalcemia of malignancy: Plan Lung mass CT/CT chest w con* [id number] IMPRESSION: 1. Pleural-based cavitary lesion with thickened patel and spiculated margins in the right upper lobe measuring 6.0 x 3.8 x 4.3 cm, findings are suspicious for a cavitary neoplasm such as squamous cell carcinoma. 2. Mediastinal and right hilar lymphadenopathy suspicious for metastatic disease. These findings include a large conglomerate lymph node mass in the right paratracheal region/right hilum measuring 10.3 x 4.4 x 4.2 cm. The mass surrounds but does not narrow the right upper and middle lobar bronchi and also surrounds and mildly narrows the right upper lobe pulmonary artery. The lymph node mass also invades the superior vena cava, the SVC is almost totally occluded by a combination of tumor thrombus and bland thrombus. 3. Small right pleural effusion, possible malignant effusion cannot be ruled out. 4. Mild fatty infiltration of the visualized liver. 5. Incidental/nonacute findings are listed in the report. CT/CT abdomen pelvis wo con [id number] IMPRESSION: 1. Multiple peritoneal nodules, consistent with metastatic disease. 2. No primary malignancy identified in the abdomen or pelvis. 3. Right pleural effusion. -With evidence of SVC is almost totally occluded by combination of tumor thrombus and bland thrombus Plan ? Will speak to oncology ? Will need to be followed up with pulmonary as outpatient -For his SVC tumor thrombus, no chest pain, no neck swelling, no respiratory symptoms, no neurologic symptoms, no issues with airway -venous ultrasound ordered Leukocytosis, -Concerns for possible postobstructive pneumonia with malignancy as above -Started on Zosyn Hypercalcemia of malignancy, 10.8 ? Status post fluid, bisphosphonate, zoledronic acid in the emergency room -vinicius start prednisone 40mg daily ? Check calcium every 6 hours ? Telemetry monitoring ? 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
[2024-02-29] MEDS: calcitonin,salmon 200 unit/mL SDV 2mL 100 UNIT SUBCUT (15:04)
--- NOTE | 2024-02-29 15:11 | P.TS_ITS ---
Transfer Summary Providers Date of Admission: 02/27/24 16:56 Date of Discharge/Transfer: 02/29/24 Attending Provider at Admission: Tigre Melissa MD Attending Provider at Transfer: Tigre Melissa MD Primary Care Provider: JESSICA Pretty Transfer Plans: Anticipated date of transfer: 02/29/24 . 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 He tells me that he was told to come to the emergency room by the nurse of his primary care provider after his CT of his chest results. He tells me that for the last few months he has been having weakness,, poor appetite, weight loss, he is a current smoker, denies any nausea, no vomiting, no chest pain, no shortness of breath, no trouble breathing, no headache, blurry vision no facial fullness,. Denies any bloody or black stools but does report acute on chronic low back pain. He tells me that they had done a chest x-ray as outpatient without followed up with a chest CT and he was told that he has 2 areas that are concerning for lung malignancy so he was told to come to [facility] for evaluation. He tells me that they were also concerned with his calcium levels. Denies any any flank pain, no dysuria, Patient was admitted to [facility] for hypercalcemia malignancy, status post zoledronic acid, IV fluids, prednisone, calcitonin, overall clinically improved no evidence of renal failure, calcium has gone down to 10.8, relatively asymptomatic, transferred to [facility] During his hospitalization he developed leukocytosis, with complaints of cough, concerns for postobstructive pneumonia given malignancy as above started on Zosyn Lung mass CT/CT chest w con* [id number] IMPRESSION: 1. Pleural-based cavitary lesion with thickened patel and spiculated margins in the right upper lobe measuring 6.0 x 3.8 x 4.3 cm, findings are suspicious for a cavitary neoplasm such as squamous cell carcinoma. 2. Mediastinal and right hilar lymphadenopathy suspicious for metastatic disease. These findings include a large conglomerate lymph node mass in the right paratracheal region/right hilum measuring 10.3 x 4.4 x 4.2 cm. The mass surrounds but does not narrow the right upper and middle lobar bronchi and also surrounds and mildly narrows the right upper lobe pulmonary artery. The lymph node mass also invades the superior vena cava, the SVC is almost totally occluded by a combination of tumor thrombus and bland thrombus. 3. Small right pleural effusion, possible malignant effusion cannot be ruled out. 4. Mild fatty infiltration of the visualized liver. 5. Incidental/nonacute findings are listed in the report. CT/CT abdomen pelvis wo con [id number] IMPRESSION: 1. Multiple peritoneal nodules, consistent with metastatic disease. 2. No primary malignancy identified in the abdomen or pelvis. 3. Right pleural effusion. -With evidence of SVC is almost totally occluded by combination of tumor thrombus and bland thrombus -No evidence of dilated neck veins, no edema head or neck, no headache, no syncopal symptoms, no blurry vision -He did have complaints of dizziness ? Due to concerns for SVC almost fully occluded by tumor thrombus, bland thrombus, newly diagnosed lung mass, concerns for delayed diagnosis and intervention, complications, patient was transferred to [facility] for urgent evaluation, by IR/pulmonary/oncology, biopsy and possible intervention Physical Exam Const: COMMON NORMALS: no acute distress and patient oriented x3 Resp: COMMON NORMALS: normal respiratory effort, No retractions, No use of accessory muscles and clear to auscultation bilaterally AUSCULTATION: clear to auscultation bilaterally Cardio: COMMON NORMALS: regular rate, regular rhythm, S1 normal heart sound present and S2 normal heart sound present RATE: regular rate RHYTHM: regular rhythm HEART SOUNDS: S1 normal heart sound present and S2 normal heart sound present GI: COMMON NORMALS: Normal to inspection, nondistended, normoactive bowel sounds present and non-tender Extremity: COMMON NORMALS: no pedal edema Neuro: COMMON NORMALS: patient oriented x3 Psych: COMMON NORMALS: mental status grossly normal TS Data Studies Completed and Pending Pending at discharge Category Date Time Status Complete Blood Count w/Auto AM LABS Lab 03/01/24 04:00 Ordered Comprehensive Metabolic Panel AM LABS Lab 03/01/24 04:00 Ordered Magnesium AM LABS Lab 03/01/24 04:00 Ordered Phosphorus AM LABS Lab 03/01/24 04:00 Ordered Vitamin D 1,25 Dihydroxy Stat Lab 02/27/24 14:55 Received MR head wo con* [id number] Routine MRI 02/29/24 12:46 Ordered Completed Studies During Hospitalization Category Date Time Status CT abdomen pelvis wo con [id number] Stat Cat Scan 02/27/24 16:38 Completed US venous duplex upper extremity RT [CV venous duplex Ultrasound 02/28/24 08:18 [place] [id number]] Routine Laboratory Last Values WBC 14.58 10^3/uL (3.29-11.43) H 02/29/24 05:08 RBC 3.76 10^6/uL (3.85-5.65) L 02/29/24 05:08 Hgb 9.70 g/dL (11.27-16.99) L 02/29/24 05:08 Hct 30.3 % (37-53) L 02/29/24 05:08 MCV 80.6 fl (82-101) L 02/29/24 05:08 MCH 25.8 pg (27-33) L 02/29/24 05:08 MCHC 32.0 g/dL (30-55) 02/29/24 05:08 RDW 14.7 % (12.1-15.1) 02/29/24 05:08 Plt Count 297 10^3/cmm (157-399) 02/29/24 05:08 MPV 9.1 fL (7.4-10.4) 02/29/24 05:08 Neut % (Auto) 81.9 % 02/29/24 05:08 Lymph % (Auto) 6.6 % 02/29/24 05:08 Grainger % (Auto) 5.3 % 02/29/24 05:08 Eos % (Auto) 0.0 % 02/29/24 05:08 Baso % (Auto) 0.5 % 02/29/24 05:08 Neut # (Auto) 11.93 10^3/uL (1.8-7.7) H 02/29/24 05:08 Lymph # (Auto) 1.0 10^3/uL (0.8-4.8) 02/29/24 05:08 Grainger # (Auto) 0.8 10^3/uL (0.2-0.9) 02/29/24 05:08 Eos # (Auto) 0.0 10^3/uL (0.0-0.8) 02/29/24 05:08 Baso # (Auto) 0.1 10^3/uL (0.0-0.1) 02/29/24 05:08 Nucleated RBC % (auto) 0 % 02/29/24 05:08 Nucleated RBCs # 0.0 /100WBC 02/29/24 05:08 Peripher Smr Path Cons Sent for review 02/27/24 14:55 Sodium 135 mmol/L (136-145) L 02/29/24 05:08 Potassium 4.4 mmol/L (3.5-5.1) 02/29/24 05:08 Chloride 101 mmol/L (98-107) 02/29/24 05:08 Carbon Dioxide 23 mmol/L (22-29) 02/29/24 05:08 Anion Gap 15.4 (5-19) 02/29/24 05:08 BUN 16 mg/dL (8-23) 02/29/24 05:08 Creatinine 0.9 mg/dL (0.7-1.2) 02/29/24 05:08 GFR Calculation 85.8 mL/min (90-130) L 02/29/24 05:08 Glucose 127 mg/dL (65-115) H 02/29/24 05:08 Estimat Average Glucose 128 02/27/24 14:55 Hemoglobin A1c 6.1 % (4.0-6.0) H 02/27/24 14:55 Calculated Osmolality 283 mOsm/kg (285-295) L 02/29/24 05:08 Lactic Acid 2.4 mmol/L (0.5-2.2) H 02/27/24 14:55 Lactic Acid (Sepsis) 2.4 mmol/L (0.5-2.2) H 02/27/24 18:56 Uric Acid 6.8 mg/dL (3.4-7.0) 02/27/24 14:55 Calcium 10.8 mg/dL (8.5-10.5) H 02/29/24 05:08 Ionized Calcium Mitzy 1.4 mmol/L (1.1-1.4) 02/29/24 12:30 Phosphorus 2.7 mg/dL (2.5-4.5) 02/29/24 05:08 Magnesium 1.4 mg/dL (1.7-2.3) L 02/29/24 05:08 Total Bilirubin 0.2 mg/dL (0.15-1.2) 02/29/24 05:08 AST 29 U/L (0-40) 02/29/24 05:08 ALT 25 U/L (0-41) 02/29/24 05:08 Alkaline Phosphatase 167 U/L (40-130) H 02/29/24 05:08 Lactate Dehydrogenase 815 U/L (135-225) H 02/27/24 14:55 Total Protein 6.8 g/dL (6.6-8.7) 02/29/24 05:08 Albumin 3.2 g/dL (3.5-5.2) L 02/29/24 05:08 Globulin 3.6 g/dL (1.3-4.6) 02/29/24 05:08 Triglycerides 358 mg/dL (0-150) H 02/27/24 14:55 Cholesterol 200 mg/dL (0-200) 02/27/24 14:55 LDL Cholesterol, Calc 100 mg/dL (50-129) 02/27/24 14:55 HDL Cholesterol 28 mg/dL (60-100) L 02/27/24 14:55 LDL/HDL Ratio 3.57 RATIO (0.00-3.22) H 02/27/24 14:55 Cholesterol/HDL Ratio 7.14 mg/dL (1.0-5.00) H 02/27/24 14:55 TSH 1.37 uIU/mL (0.27-4.20) 02/27/24 14:55 PTH Intact 3.4 pg/mL (15-65) L 02/27/24 14:55 Calcium (PTH Intact) 14.7 mg/dL (8.5-10.5) H* 02/27/24 14:55 Urine Color Yellow (Yellow) 02/27/24 17:16 Urine Appearance Clear (CLEAR) 02/27/24 17:16 Urine pH 6.0 (5-7) 02/27/24 17:16 Ur Specific Larose 1.025 (1.005-1.030) 02/27/24 17:16 Urine Protein Negative (Negative) 02/27/24 17:16 Urine Glucose (UA) Negative (Normal) 02/27/24 17:16 Urine Ketones Negative (Negative) 02/27/24 17:16 Urine Blood Negative (Negative) 02/27/24 17:16 Urine Nitrate Negative (Negative) 02/27/24 17:16 Urine Bilirubin Negative (Negative) 02/27/24 17:16 Urine Urobilinogen 1.0 mg/dL (Negative) 02/27/24 17:16 Ur Leukocyte Esterase Negative (Negative) 02/27/24 17:16 Urine RBC 0-2 /hpf (0-2) 02/27/24 17:16 Urine WBC 0-5 /hpf (0-5) 02/27/24 17:16 Ur Squamous Epith Cells 0-5 /hpf (0-5) 02/27/24 17:16 Amorphous Sediment Not Reportable 02/27/24 17:16 Urine Bacteria None seen /hpf (NONE) 02/27/24 17:16 Hyaline Casts 0.81 /lpf 02/27/24 17:16 Radiology Impressions Abdomen/Pelvis CT 02/27/24 16:38 IMPRESSION: 1. Multiple peritoneal nodules, consistent with metastatic disease. 2. No primary malignancy identified in the abdomen or pelvis. 3. Right pleural effusion. Venous Duplex 02/28/24 08:18 IMPRESSION: No evidence of deep vein thrombosis. Recent Clincial Data Last Vital Signs Temp 98.2 F 02/29/24 11:12 Pulse 87 02/29/24 14:00 Resp 18 02/29/24 14:00 BP 143/82 02/29/24 11:12 Pulse Ox 92 02/29/24 14:00 O2 Del Method Room Air 02/29/24 14:00 FiO2 30 02/27/24 18:05 Vital Signs Temp Pulse Resp BP Pulse Ox O2 Del Method 02/29/24 14:00 87 18 92 Room Air 02/29/24 13:34 16 91 02/29/24 11:12 98.2 F 87 16 143/82 91 Room Air 02/29/24 10:21 98.2 F 87 16 143/82 02/29/24 08:31 18 92 02/29/24 08:00 98.7 F 89 17 149/80 02/29/24 07:39 88 18 92 Room Air 02/29/24 07:35 98.7 F 89 17 149/80 92 Room Air 02/29/24 06:44 80 02/29/24 04:02 16 02/29/24 04:00 97.8 F 89 17 142/91 94 02/29/24 03:16 88 Intake & Output/Weight 02/27/24 02/28/24 02/29/24 03/01/24 06:59 06:59 06:59 06:59 Intake Total 3588.75 / 3588.75 940 / 940 1170 / 1170 Output Total 600 / 600 Balance 2988.75 / 2988.75 940 / 940 1170 / 1170 Weight 72.303 kg 72.529 kg Vitals Last Vital Signs Temp 98.2 F 02/29/24 11:12 Pulse 87 02/29/24 14:00 Resp 18 02/29/24 14:00 BP 143/82 02/29/24 11:12 Pulse Ox 92 02/29/24 14:00 O2 Del Method Room Air 02/29/24 14:00 FiO2 30 02/27/24 18:05 TS Medications Medications Acetaminophen (Acetaminophen 325 Mg Tablet) 650 mg PO Q6H PRN PRN Reason: Mild/Mod Pain Or Temp >/= 101 Albuterol/Ipratropium (Ipratropium-Albuterol 3 Ml Neb) 3 ml INHALATION Q6H.RESP LATESHA Last Admin: 02/29/24 13:58 Dose: 3 ml Amlodipine Besylate (Amlodipine 10 Mg Tablet) 10 mg PO DAILY [facility] Last Admin: 02/29/24 08:32 Dose: 10 mg Calcitonin Midland (Calcitonin,[place] 200 Unit/Ml Sdv 2ml) 100 unit SUBCUT Q24H LATESHA Last Admin: 02/29/24 15:04 Dose: 100 unit Enoxaparin Sodium (Enoxaparin 40 Mg/0.4 Ml Syringe) 40 mg SUBCUT Q24H [facility] Last Admin: 02/28/24 18:09 Dose: 40 mg Hydromorphone HCl (Hydromorphone 1 Mg/Ml Inj 1 Ml) 1 mg IVP Q4H PRN PRN Reason: PAIN Last Admin: 02/29/24 13:34 Dose: 1 mg Sodium Chloride (Sodium Chloride 0.9%) 1,000 mls @ 75 mls/hr IV .[id number] [facility] Last Admin: 02/29/24 08:31 Dose: 75 mls/hr Piperacillin Sod/Tazobactam (Sod 3.375 gm/ Sodium Chloride) 50 mls @ 12.5 mls/hr IV Q8H [facility] Last Admin: 02/29/24 09:48 Dose: 12.5 mls/hr Magnesium Lactate (Magnesium Lactate 84 Mg Tablet) 84 mg PO BID [facility] Last Admin: 02/29/24 08:34 Dose: 84 mg Naloxone HCl (Naloxone 0.4 Mg/Ml Sdv) 0.1 mg IVP Q2M PRN PRN Reason: OPIATERV Ondansetron HCl (Ondansetron 2 Mg/Ml Sdv 2 Ml) 4 mg IVP Q4H PRN PRN Reason: vomiting, or N/V if npo Last Admin: 02/28/24 15:49 Dose: 4 mg Pantoprazole Sodium (Pantoprazole 40 Mg Sdv) 40 mg IVP Q24H [facility] Last Admin: 02/28/24 18:09 Dose: 40 mg Prednisone (Prednisone 20 Mg Tablet) 40 mg PO DAILY [facility] Last Admin: 02/29/24 08:32 Dose: 40 mg Discontinued Medications Amlodipine Besylate (Amlodipine 5 Mg Tablet) 5 mg PO DAILY ONE Stop: 02/27/24 17:46 Last Admin: 02/27/24 17:53 Dose: 5 mg Calcitonin Midland (Calcitonin,[place] 200 Unit/Ml Sdv 2ml) 100 unit SUBCUT DAILY [facility] Last Admin: 02/27/24 15:41 Dose: 100 unit Calcitonin Midland (Calcitonin,[place] 200 Unit/Ml Sdv 2ml) 170 unit SUBCUT ONCE ONE Stop: 02/27/24 16:01 Last Admin: 02/27/24 16:38 Dose: 170 unit Sodium Chloride (Sodium Chloride 0.9%) 1,000 mls @ 999 mls/hr IV .Q1H1M ONE Stop: 02/27/24 16:06 Last Infusion: 02/27/24 18:31 Dose: Infused Zoledronic Acid/Mannitol/Sodium Chl (Zoledronic Acid 4 Mg/100 Ml Premix) 4 mg in 100 mls @ 400 mls/hr IV ONCE ONE Stop: 02/27/24 15:44 Last Infusion: 02/27/24 18:32 Dose: Infused Sodium Chloride (Sodium Chloride 0.9%) 1,000 mls @ 999 mls/hr IV .Q1H1M ONE Stop: 02/27/24 17:08 Last Infusion: 02/27/24 18:33 Dose: Infused Piperacillin Sod/Tazobactam (Sod / Sodium Chloride) 50 mls @ 0 mls/hr [id number] CONT LATESHA; Protocol Morphine Sulfate (Morphine 4 Mg/Ml Sdv 1 Ml) 2 mg IVP Q4H PRN PRN Reason: SEVERE PAIN Last Admin: 02/28/24 13:11 Dose: 2 mg Ondansetron HCl (Ondansetron 2 Mg/Ml Sdv 2 Ml) 4 mg IVP Q8H PRN PRN Reason: vomiting, or N/V if npo Last Admin: 02/28/24 03:29 Dose: 4 mg Allergies ciprofloxacin Allergy (Verified 02/27/24 13:35) ADR-Seizure sulfamethizole Allergy (Verified 02/27/24 13:35) ADR-Seizure Home Medications ibuprofen 200 mg tablet 200 mg PO Q6H PRN Pain 04/20/21 [History Confirmed 02/27/24] azithromycin 250 mg tablet See Rx Instructions PO .COMPLEX #6 tabs 02/26/24 [Rx Confirmed 02/27/24] cholecalciferol (vitamin D3) 1,250 mcg (50,000 unit) capsule 1,250 mcg PO .once a week 90 days #12 caps 02/26/24 [Rx Confirmed 02/27/24] fluticasone fur. 100 mcg-umeclid 62.5 mcg-vilant 25 mcg inhalat.powder (Trelegy Ellipta) 1 ea inhalation DAILY 02/27/24 [History Confirmed 02/27/24] meloxicam 15 mg tablet 15 mg PO DAILY 02/27/24 [History Confirmed 02/27/24] omeprazole 40 mg capsule,delayed release 40 mg PO DAILY 02/27/24 [History Confirmed 02/27/24] Discharge Plan Discharge Condition: Stable Prescriptions: No Action ibuprofen 200 mg tablet 200 mg PO Q6H PRN (Reason: Pain) azithromycin 250 mg tablet See Rx Instructions PO .COMPLEX Qty: 6 0RF Rx Instructions: take 500 mg today (day 1), then 250 mg for 4 days (days 2-5) PO cholecalciferol (vitamin D3) 1,250 mcg (50,000 unit) capsule 1,250 mcg PO .once a week 90 Days Qty: 12 1RF meloxicam 15 mg tablet 15 mg PO DAILY Rx Instructions: Take 1 tablet by mouth once daily omeprazole 40 mg capsule,delayed release(DR/EC) 40 mg PO DAILY Rx Instructions: Take 1 capsule by mouth once daily Trelegy Ellipta 100-62.5-25 mcg blister with device 1 ea inhalation DAILY Rx Instructions: Inhale 1 puff by mouth once daily Referrals: Jesse Reyes FNP [Primary Care Provider] - Patient Instructions: Opioid Safety Transfer Attestations Time Spent in Transfer Care: greater than 30 min Quality Metrics Clinical Quality Measures [ No reported AMI, CVA or VTE this stay] Coding Level of Care Code Acute Code for Chg Fwd Diagnoses Mass of right lung R91.8 Pulmonary emphysema, unspecified emphysema type J43.9 COPD type: emphysema Emphysema type: unspecified Superior vena caval occlusion I82.210 Hypercalcemia E83.52 Hypercalcemia of malignancy E83.52
--- NOTE | 2024-02-29 17:43 | PC.NURSE ---
Called report to Anna Hancock RN at 1435 to [facility].
[2024-03-04 14:55] LABS: Vit D 1,25 (Oh)2, Total 70 pg/mL (18-72); Vit D2 1,25 (Oh)2 <8 pg/mL; Vit D3 1,25 (Oh)2 70 pg/mL
== END 2024-02-29 17:20 | disposition home or self-care (01) | DRG 640 ==
LOC: ER 14:32 → MEDSURG 18:12
PROVIDERS: Admitting Provider Family Medicine; Emergency Provider Family Medicine; PCP Registered Nurse; Visit Provider Family Medicine
DX: E83.52 Hypercalcemia (principal); J18.9 Pneumonia, unspecified organism; I82.210 Acute embolism and thrombosis of superior vena cava; R91.8 Other nonspecific abnormal finding of lung field; J43.9 Emphysema, unspecified; R59.0 Localized enlarged lymph nodes; F17.210 Nicotine dependence, cigarettes, uncomplicated; G89.29 Other chronic pain; M54.50 Low back pain, unspecified
CPT/HCPCS: 36415; 74176; 80053; 80061; 80503; 81001; 82310; 82330; 82652; 83036; 83605; 83615; 83735; 83970; 84100; 84443; 84550; 85025; 93005; 93971; 94640; 94664; 96372; 96374; 96375; 99232; 99285; J0630; J1171; J1650; J2270; J2405; J2470; J2543; J3489; J7030; J7512